=== PATIENT | female | born 1970 | race Two or more races ===

== ENCOUNTER → 2019-09-19 | Outpatient (CLI) | payer OTHER | END | disposition home or self-care (01) | LOC: SONOGRAMA 10:53 | DX: E03.8 Other specified hypothyroidism (principal) ==

== ENCOUNTER 2020-08-09 12:04 | Outpatient (CLI) | payer OTHER | END 2020-08-09 12:17 | disposition home or self-care (01) | LOC: MAMO-SONO 12:04 | PROVIDERS: ATTEND Obstetrics & Gynecology Maternal & Fetal Medicine | DX: Z12.31 Encounter for screening mammogram for malignant neoplasm of breast (principal); N64.4 Mastodynia; N60.11 Diffuse cystic mastopathy of right breast; N63.10 Unspecified lump in the right breast, unspecified quadrant; N63.20 Unspecified lump in the left breast, unspecified quadrant ==

== ENCOUNTER 2023-01-03 08:05 | Outpatient (CLI) | payer OTHER | END 2023-01-03 08:12 | disposition home or self-care (01) | LOC: RAD 08:05 | PROVIDERS: ATTEND Internal Medicine Pulmonary Disease | DX: R05.3 Chronic cough (principal) ==

== ENCOUNTER 2023-12-08 08:51 | Outpatient (CLI) | payer OTHER | END 2023-12-08 08:53 | disposition home or self-care (01) | LOC: SONOGRAMA 08:51 | PROVIDERS: ATTEND Internal Medicine Gastroenterology | DX: K80.80 Other cholelithiasis without obstruction (principal) ==

== ENCOUNTER 2024-06-29 14:30 | Outpatient (CLI) | payer OTHER | END 2024-06-29 14:45 | disposition home or self-care (01) | LOC: RAD 14:30 | PROVIDERS: ATTEND Orthopaedic Surgery Sports Medicine | DX: M22.41 Chondromalacia patellae, right knee (principal); M25.461 Effusion, right knee; M76.51 Patellar tendinitis, right knee ==

== ENCOUNTER 2024-11-09 15:16 | Outpatient (CLI) | payer OTHER | END 2024-11-09 15:28 | disposition home or self-care (01) | LOC: RAD 15:16 | PROVIDERS: ATTEND Chiropractor | DX: M54.2 Cervicalgia (principal); M54.6 Pain in thoracic spine; M54.59 Other low back pain ==

== ENCOUNTER 2024-12-05 08:22 | Outpatient (CLI) | payer OTHER | END 2024-12-05 08:24 | disposition home or self-care (01) | LOC: RAD 08:22 | DX: D16.21 Benign neoplasm of long bones of right lower limb (principal) ==

== ENCOUNTER 2024-12-27 08:10 | Outpatient (CLI) | payer OTHER | END 2024-12-27 08:29 | disposition home or self-care (01) | LOC: MAMO-SONO 08:10 | DX: N60.11 Diffuse cystic mastopathy of right breast (principal); N60.12 Diffuse cystic mastopathy of left breast; K74.00 Hepatic fibrosis, unspecified; K26.9 Duodenal ulcer, unspecified as acute or chronic, without hemorrhage or perforation ==